=== PATIENT | male | born 1990 | race Two or more races ===

== ENCOUNTER 2022-03-13 01:26 | Emergency (ER) | payer MEDICAID ==
[~2022-03-13] VITALS: Ht 172.7 cm; Wt 95.0 kg
[2022-03-13 01:27] VITALS: BP 137/103
[2022-03-13] MEDS ORDERED: TRIA0.02 TOP (03:26)
== END 2022-03-13 04:00 | disposition home or self-care (01) ==
LOC: ER 01:26
DX: L25.9 Unspecified contact dermatitis, unspecified cause (principal); Z79.899 Other long term (current) drug therapy